=== PATIENT | female | born 1935 | race Caucasian/White ===

== ENCOUNTER 2021-06-03 00:25 | Emergency (ER) | payer OTHER, MEDICARE ==
[~2021-06-03] VITALS: Ht 165.1 cm; Wt 75.3 kg
[~2021-06-03 00:25] MED LIST: ATENOLOL25 MG PO; BIOTIN2500 MCG PO; FOLIC ACID1 MG PO; LIPITOR80 MG PO; OMEGA-3100 MG PO; PAXIL20 MG PO; VITAMIN A8000 UNIT PO; VITAMIN D-32000 UNIT PO
[2021-06-03] MEDS ORDERED: IBUPROFEN 400 MG TAB PO ONE (00:45)
[2021-06-03] MEDS ORDERED: HYDROCODONE/APAP 5MG-325MG TAB PO ONE (00:45)
[2021-06-03] MEDS ORDERED: FENTANYL CITRATE/PF 100MCG/2 ML INJ IV ONE (02:00)
[2021-06-03] MEDS ORDERED: HYDROCODON-ACE1 EA11 PO (04:03)
== END 2021-06-03 05:00 | disposition home or self-care (01) ==
LOC: ER 01:00
DX: S43.101A Unspecified dislocation of right acromioclavicular joint, initial encounter (principal); W01.0XXA Fall on same level from slipping, tripping and stumbling without subsequent striking against object, initial encounter; Y92.018 Other place in single-family (private) house as the place of occurrence of the external cause; S42.031A Displaced fracture of lateral end of right clavicle, initial encounter for closed fracture; I10 Essential (primary) hypertension; E78.5 Hyperlipidemia, unspecified
CPT/HCPCS: 70450; 71045; 72125; 73020; 73030; 73080; 73200; 99282; J3010